=== PATIENT | male | born 1945 | race Caucasian/White ===

== ENCOUNTER → 2022-03-10 | Outpatient (CLI) | payer MEDICARE, OTHER ==
--- NOTE | 2022-03-10 12:16 | US ---
EXAMINATION TYPE: US kidneys/renal and bladder DATE OF EXAM: 03/10/2022 COMPARISON: NONE CLINICAL HISTORY: 76-year-old male R31.9 HEMATURIA. Macroscopic hematuria. No symptoms. Technique: Multiple sonographic images of the kidneys and bladder are obtained. FINDINGS: EXAM MEASUREMENTS: Right Kidney: 9.6 x 4.7 x 5.0 cm Left Kidney: 9.5 x 4.1 x 5.6 cm Right Kidney: No hydronephrosis or masses seen Left Kidney: No hydronephrosis or masses seen, unable to visualize spleen due to bowel gas. Bladder: Distended, anechoic Bilateral Jets seen Lobulated, enlarged appearance to the prostate gland impressing onto the base of the bladder IMPRESSION: Lobulated prostate impressing into the base of the bladder, possibly related to BPH. Correlate with P SA and patient's symptoms. No hydronephrosis seen.
== END | disposition home or self-care (01) ==
LOC: RADUSWWP 10:03
PROVIDERS: ATTEND Internal Medicine Geriatric Medicine
DX: R31.9 Hematuria, unspecified (principal)
CPT/HCPCS: 76770

== ENCOUNTER → 2022-04-10 | Outpatient (CLI) | payer MEDICARE, OTHER ==
[2022-04-10 14:32] LABS: African American GFR (CKD) >90 (>60 ml/min/1.73 sqM); Blood Urea Nitrogen 11 mg/dL (9-20); Non-African American GFR(CKD) 81 (>60 ml/min/1.73 sqM)
--- NOTE | 2022-04-10 16:23 | CT ---
EXAMINATION TYPE: CT urogram wo/w con CT DLP: 2460 mGycm, Automated exposure control for dose reduction was used. DATE OF EXAM: 04/10/2022 3:42 PM COMPARISON: Ultrasound kidneys 03/10/2022. CLINICAL INDICATION:Male, 76 years old with history of R31.0 GROSS HEMATURIA, HEMATURIA X1 MONTH TECHNIQUE: Urogram with imaging of the abdomen and pelvis. Coronal and sagittal reformats were performed. 2D and 3D reconstructions are performed to assist visualization of the urinary tract on a separate workstat ion. Contrast used:100 mL of Isovue 300 without and with IV Contrast, Oral contrast used: None. FINDINGS: GENITOURINARY: RIGHT KIDNEY AND URETER: No calculi. No hydronephrosis or hydroureter. No renal mass or other lesions . No urothelial lesions: no filling defect, dilation, stricture or wall thickening. Calcifications wi thin the renal sinus are felt to be secondary to vascular atherosclerosis. LEFT KIDNEY AND URETER: Nonobstructing renal calculi measuring 2 mm.. No hydronephrosis or hydrourete r. No renal mass or other lesions. No urothelial lesions: no filling defect, dilation, stricture or w all thickening. Additional calcifications within the renal sinus are felt to be secondary to vascular atherosclerosis . URINARY BLADDER: Not optimally distended. Limited evaluation of the urinary bladder secondary to stre ak artifact and lack of IV contrast. Posterior craft well opacified on 10 minute delay and demonstrat es no definitive mass. Median lobe hypertrophy changes extend into the bladder lumen. REPRODUCTIVE: Prostate gland is enlarged measuring up to 5.6 cm. ABDOMEN LIVER: Diffusely hypoattenuating, consistent with hepatic steatosis. Hepatic cyst present. GALLBLADDER AND BILE DUCTS: Unremarkable PANCREAS: Unremarkable. SPLEEN: Unremarkable. ADRENAL GLANDS: Unremarkable. STOMACH AND BOWEL: . No evidence of bowel obstruction. PERITONEUM: No evidence of pneumoperitoneum, free fluid, or adenopathy. VASCULATURE: No aortic aneurysm. Infrarenal fusiform aneurysmal dilation up to 3.4 cm. MUSCULOSKELETAL: No acute osseous abnormalities. Bilateral hip prostheses which appears intact. Multi level disc degeneration changes are seen throughout the spine with dextroscoliosis apex L2. SOFT TISSUE/ABDOMINAL WALL: Unremarkable. LOWER CHEST: No significant findings. IMPRESSION: 1. No evidence of urolithiasis or renal/urothelial neoplasm. There was limited evaluation of the uri nary bladder anterior wall. 2. Left nonobstructing renal calculi. 3. Prostatomegaly. correlate serum PSA. 4. Fusiform infra renal aortic aneurysm measuring up to 3.4 cm. 5. Colonic diverticulosis. 6. Hepatic steatosis.
== END | disposition home or self-care (01) ==
LOC: RADCTMAIN 13:44
PROVIDERS: ATTEND Urology
DX: R31.0 Gross hematuria (principal)
CPT/HCPCS: 82565; 84520; 74178; 36415; 74400; Q9967

== ENCOUNTER → 2023-02-11 | Outpatient (CLI) | payer MEDICARE, OTHER ==
--- NOTE | 2023-02-11 12:17 | XR ---
EXAM TYPE: LUMBAR SPINE X RAY SERIES COMPARISON: NONE HISTORY: Pain TECHNIQUE: 4 views are submitted. FINDINGS: Alignment is anatomic. The pedicles are intact. The transverse processes are intact. There is yesenia re scoliosis with severe degenerative disc disease and facet arthropathy at all levels. Postsurgical change involving the sacrum and bilateral hip are noted. Vascular calcifications of the aorta. Findin gs suspicious for a abdominal aortic aneurysm measuring 4.3 cm. IMPRESSION: 1. Severe scoliosis with severe degenerative disc disease at all levels. Severe facet arthropathy wit h multilevel bilateral foraminal encroachment. 2. A 4.3 cm abdominal aortic aneurysm appears increased in size from CT scan of 04/10/2022 where it miguelina sured 3.4 cm. A Yellow level critical message alert has been initiated for Mt Molina MD via the [employer] Critical Results System on 02/11/2023 12:15 PM. This message alert has been sent to Mt Molina MD via the preferences provided by the clinician for the receipt of Radiology Critical Findings. Message ID [id number].
== END | disposition home or self-care (01) ==
LOC: RADXRMAIN 11:35
PROVIDERS: ATTEND Internal Medicine Geriatric Medicine
DX: M51.36 Other intervertebral disc degeneration, lumbar region (principal); M47.816 Spondylosis without myelopathy or radiculopathy, lumbar region; I71.40 Abdominal aortic aneurysm, without rupture, unspecified
CPT/HCPCS: 72100

== ENCOUNTER → 2023-02-16 | Outpatient (CLI) | payer MEDICARE, OTHER ==
--- NOTE | 2023-02-16 09:26 | US ---
EXAMINATION TYPE: US duplex aorta DATE OF EXAM: 02/16/2023 COMPARISON: CT urogram 2021 CLINICAL INDICATION: Male, 77 years old with history of I71.40 ABDOMINAL AORTIC ANEURYSM, WITHOUT RUP TURE; AAA seen on previous CT and x-ray TECHNIQUE: Multiple sonographic images of the abdominal aorta are obtained. FINDINGS: EXAM MEASUREMENTS: Abdominal Aorta: Proximal: 2.7 x 2.2cm Mid: 2.5 x 2.8cm Distal: 3.5 x 4.0cm Rt. Iliac: 1.2 x 1.2cm Lt. Iliac: 1.2 x 1.2cm AAA seen distal aorta measuring 3.5 x 4.0cm with a length of 5.0cm, proximal and mid aorta ectatic . Atherosclerotic calcification of the aorta. Normal color Doppler flow within the aorta. IMPRESSION: Infrarenal fusiform distal abdominal aortic aneurysm measuring up to 4.0 cm. Ectasia of the proximal and mid portions of the abdominal aorta.
== END | disposition home or self-care (01) ==
LOC: RADUSWWP 08:42
PROVIDERS: ATTEND Internal Medicine Geriatric Medicine
DX: I71.40 Abdominal aortic aneurysm, without rupture, unspecified (principal)
CPT/HCPCS: 93979

== ENCOUNTER → 2023-03-01 | Outpatient (CLI) | payer MEDICARE, OTHER ==
--- NOTE | 2023-03-01 10:36 | MR ---
EXAMINATION TYPE: MR lumbar spine wo/w con DATE OF EXAM: 03/01/2023 10:12 AM COMPARISON: 02/11/2023. CLINICAL INDICATION: Male, 77 years old with history of M54.50 low back pain; Low back pain. TECHNIQUE: Multi planar, multi sequence imaging was performed utilizing: T1-weighted, T2-weighted, a nd turbo inversion recovery imaging of the lumbar spine. IV Contrast: 7 cc Gadavist. None. FINDINGS: Alignment: There is scoliosis changes to the spine dextroscoliosis apex T12-L1. Cord: The conus medullaris and the distal spinal cord appear unremarkable with regards to their signa l intensity and morphology. No abnormal postcontrast enhancement. Bones/Discs: There is reactive inversion recovery edema involving the L2-L3 adjoining endplates. Ther e is reactive contrast enhancement in this seen region as well. Multilevel degeneration with osteophy keshia and disc space narrowing and Schmorl's nodes are present throughout the spine and some of these a re secondary to scoliosis changes. These changes are likely due to some scoliosis changes. T12-L1: Disc bulge and facet joint arthropathy result in mild spinal canal and severe left and modera te to severe right neural foraminal stenosis. L1-L2: Disc bulge and facet joint arthropathy result in mild spinal canal and severe left and moderat e to severe right neural foraminal stenosis. L2-L3: Disc bulge with superimposed protrusion centrally with moderate spinal canal stenosis, moderat e to severe right and severe left neural foraminal stenosis. L3-L4: Disc bulge and facet joint arthropathy result in moderate spinal canal and severe right and mo derate to severe left neural foraminal stenosis. L4-L5: Disc bulge and facet joint arthropathy result in mild spinal canal and moderate bilateral neur al foraminal stenosis. L5-S1: The disc is rounded posterior morphology without significant spinal canal stenosis. Facet join t arthropathy with moderate to severe right and severe left neural foraminal stenosis. No significant spinal canal or neural foraminal stenosis in the remainder of the visualized levels. Other findings: None. IMPRESSION: 1. L2-L3 disc herniation with moderate spinal canal stenosis and moderate to severe right and severe left neural foraminal stenosis. 2. Multilevel disc degeneration with associated osteoarthritic changes. Neural foraminal stenosis wo rse at L5-S1, L3-L4 and L1-L2. 3. Findings compatible some active inflammation involving the L2 and L3 vertebral bodies.
== END | disposition home or self-care (01) ==
LOC: RADMRIMAIN 09:19
PROVIDERS: ATTEND Internal Medicine Geriatric Medicine
DX: M51.36 Other intervertebral disc degeneration, lumbar region (principal); M51.26 Other intervertebral disc displacement, lumbar region; M48.061 Spinal stenosis, lumbar region without neurogenic claudication
CPT/HCPCS: 72158; A9585

== ENCOUNTER → 2023-03-04 | Outpatient (CLI) | payer MEDICARE, OTHER ==
[2023-03-04 11:42] VITALS: BP 142/78; PULSE 51; RESP 18; TEMP 97.7
--- NOTE | 2023-03-04 15:26 | P.PAINPG ---
PQRS Measure Charge Sheet Comment: HISTORY OF PRESENT ILLNESS: 77 yr old male w at side as a referral from Dr Owens presents today w severe and chronic LBP x 3 yrs secondary to disc bulges, DDD, spondylolisthesis and facet arthropathy without myelopathy for evaluation. Pt states pain level is provoked at 6 /10 in intensity, constant, localized in the lower lumbar spine, sharp in character w shooting pain. Pain is provoked by bending. Pain is alleviated by injections by Dr Mahan, medications ([place], Tyl #3, Aleve, Tyl), topicals, THC products, ice, heat, PT x 16 wks in 2016, repositioning and rest. Pt follows a physician guided home exercise & streching regimen daily x last 2 yrs. Oswetry Pain Score of 30. PMH: OA, HTN, Hyperlipidemia, MDD, Graves Hypothroidism, Parkinson's Disease, Seasonal Allergies PSH: BL Hip Replacement, L SI Fusion, Colonoscopy (2011, 2017), L Shoulder Surgery (2021), L Knee Surgery (2007), Cataract Resection (2009), BL Hip Replacement (2001), Hernia Repair (2002) SH: Daily ETOH use, Daily tobacco use, CBD, THC & Kratom use FH: Non contributory All: See list Meds: See list REVIEW OF ORGAN SYSTEMS: CONSTITUTIONAL: No fevers or chills. No recent weight loss. NEUROLOGICAL: + numbness and tingling along the distal extremities. No seizure disorders or headaches. MUSCULOSKELETAL: + pain PSYCHIATRIC: Denies current depression or suicidal thoughts. Physical Examinations : Constitutional : Cooperative , not in acute distress . Neurologic : Cranial nerve II to XII intact. No focal neurological deficits. Psychiatric : alert & oriented x 3. Matching mood & appropriate affect. Judgment & insight intact. Musculoskeletal : Cervical Spine Motor strength in the deltoid and biceps: Normal right side. Normal Left side Motor strength biceps and the wrist extensors: Normal right side . Normal left side Motor strength in the triceps muscle: Normal right side. Normal left side Deep tendon reflexes: Normal at the biceps. Normal at Brachioradialis. Normal at triceps Vertebral body tenderness to deep palpation over Cervical facet loading test: positive bilaterally Spurling test: positive bilaterally Neck distraction test: positive bilaterally Anne sign: positive bilaterally Lumbar spine Motor strength lower extremities ,thigh and legs 5/5 Right side , 5/5 Left side Deep tendon reflexes : Normal Knee Jerk. Normal Ankle Jerk Vertebral body tenderness over L5 Lan Test positive Lumbar facet Loading Test: positive Right / positive Left Range of motion of the lumbar spine Flexion 30 degrees, extension 10 degrees Straight Leg Raise test: Left/ Right positive at 35 degrees Ernestine test: positive right / positive left. Severe tenderness over the Sacroiliac joint on the Right / Left sides Gaenslen test: positive bilaterally Seated flexion test: positive bilaterally. Sacral spine : Severe tenderness over the Sacroiliac joint: right side / left side Range of motion: Flexion of the lumbar spine <60 degrees Range of motion: Extension of the lumbar spine <20 degrees Gaenslen's Test positive David's Test positive Ernestine test: positive right side / left side Thigh Thrust Test Sacral Thrust Test Imaging: MRI non contrast of the lumbar spine from Dec 2018 reviewed Assessment/ Plan : Lumbar DDD Recommendation of LOUIS L5-S1. May need a series of injections for optimal pain relief. Risks, benefits of procedure discussed and pt verbalized understanding. Protocol for discontinuation/ continuation of medications kaylie procedure discussed. All questions answered. I have spent greater than 30 minutes on patient care today. Dr Mauricio was available by phone for the evaluation of this patient. The time was used to review the medical records including relevant urine studies and Prescription history (MAPs), review of the available imaging, evaluation and examination of the patient, coordination of care with the medical staff and if applicable referring physicians, as well as creation of the medical record Home Medications: Ambulatory Orders Acetaminophen-Codeine 300-30mg [Tylenol w/codeine #3] 1 tab PO Q6H PRN 03/04/23 Baclofen 10 mg PO TID 03/04/23 HYDROcodone/APAP 10-325MG [[place] 10-325] 1 tab PO Q6HR PRN 03/04/23 Levothyroxine Sodium [Levoxyl] 150 mcg PO DAILY 03/04/23 Omeprazole [PriLOSEC] 20 mg PO AC-BRKFST 03/04/23 Pramipexole [Mirapex] 0.5 mg PO HS 03/04/23 Rosuvastatin [Crestor] tablet PO HS 03/04/23 buPROPion XL [Wellbutrin XL] 150 mg PO DAILY 03/04/23 dexAMETHasone [Decadron] tablet PO DAILY 03/04/23 traZODone HCL [Desyrel] 50 mg PO HS 03/04/23 Controlled Substance Measures - Controlled Substance Measures Is patient prescribed a controlled substance at discharge?: No
== END ==
LOC: PNWHC3 10:19
PROVIDERS: ATTEND Specialist
DX: M51.36 Other intervertebral disc degeneration, lumbar region (principal); M43.16 Spondylolisthesis, lumbar region; G89.29 Other chronic pain; M19.90 Unspecified osteoarthritis, unspecified site; I10 Essential (primary) hypertension; E78.5 Hyperlipidemia, unspecified; F32.9 Major depressive disorder, single episode, unspecified; E03.9 Hypothyroidism, unspecified; G20 Parkinson's disease; J30.2 Other seasonal allergic rhinitis; Z79.890 Hormone replacement therapy
CPT/HCPCS: 99202

== ENCOUNTER → 2023-04-15 | Outpatient (CLI) | payer MEDICARE, OTHER ==
[2023-04-15 10:58] VITALS: BP 153/87; PULSE 54; RESP 15; TEMP 98.1
--- NOTE | 2023-04-15 14:32 | P.PAINPG ---
PQRS Measure Charge Sheet Comment: HISTORY OF PRESENT ILLNESS: 77 yr old male w at side presents today w severe and chronic LBP x 3 yrs secondary to disc bulges, DDD, spondylolisthesis and facet arthropathy without myelopathy for evaluation s/p LOUIS L5-S1. Pt states he experienced 80 % pain relief x 1 wks s/p procedure. Pt states pain level is provoked at 6 /10 in intensity, constant, localized in the lower lumbar spine, sharp in character w shooting pain. Pain is provoked by standing/ walking for periods of 15 min or more. Pain is alleviated by injections by Dr Mahan, medications, topicals, THC products, ice, heat, PT x 16 wks in 2016, repositioning and rest. Pt follows a physician guided home exercise & stretching regimen daily x last 2 yrs. Oswestry Pain Score of 25. Interventional procedures include LOUIS L5-S1 x1 Medications include [place], Tyl #3, Aleve, Tyl, topicals, THC products REVIEW OF ORGAN SYSTEMS: CONSTITUTIONAL: No fevers or chills. No recent weight loss. NEUROLOGICAL: + numbness and tingling along the distal extremities. No seizure disorders or headaches. MUSCULOSKELETAL: + pain PSYCHIATRIC: Denies current depression or suicidal thoughts. Physical Examinations : Constitutional : Cooperative , not in acute distress . Neurologic : Cranial nerve II to XII intact. No focal neurological deficits. Psychiatric : alert & oriented x 3. Matching mood & appropriate affect. Judgment & insight intact. Musculoskeletal : Cervical Spine Motor strength in the deltoid and biceps: Normal right side. Normal Left side Motor strength biceps and the wrist extensors: Normal right side . Normal left side Motor strength in the triceps muscle: Normal right side. Normal left side Deep tendon reflexes: Normal at the biceps. Normal at Brachioradialis. Normal at triceps Vertebral body tenderness to deep palpation over Cervical facet loading test: positive bilaterally Spurling test: positive bilaterally Neck distraction test: positive bilaterally Anne sign: positive bilaterally Lumbar spine Motor strength lower extremities ,thigh and legs 5/5 Right side , 5/5 Left side Deep tendon reflexes : Normal Knee Jerk. Normal Ankle Jerk Vertebral body tenderness over L5 Lan Test positive Lumbar facet Loading Test: positive Right / positive Left over BL L4-L5, L5-S1 Range of motion of the lumbar spine Flexion 30 degrees, extension 10 degrees Straight Leg Raise test: Left/ Right positive at 35 degrees Ernestine test: positive right / positive left. Severe tenderness over the Sacroiliac joint on the Right / Left sides Gaenslen test: positive bilaterally Seated flexion test: positive bilaterally. Sacral spine : Severe tenderness over the Sacroiliac joint: right side / left side Range of motion: Flexion of the lumbar spine <60 degrees Range of motion: Extension of the lumbar spine <20 degrees Gaenslen's Test positive David's Test positive Ernestine test: positive right side / left side Thigh Thrust Test Sacral Thrust Test Imaging: MRI non contrast of the lumbar spine from 03/01/23 reviewed Assessment/ Plan : Lumbar DDD Recommendation of BL facet block of the medial branches L4-L5, L5-S1. May need a series of injections, up until RFA, for optimal pain relief. Risks, benefits of procedure discussed and pt verbalized understanding. Protocol for discontinuation/ continuation of medications kaylie procedure discussed. PT x 6 wks re: M51.36 All questions answered. I have spent greater than 30 minutes on patient care today. Dr Mauricio was available by phone for the evaluation of this patient. The time was used to review the medical records including relevant urine studies and Prescription history (MAPs), review of the available imaging, evaluation and examination of the patient, coordination of care with the medical staff and if applicable referring physicians, as well as creation of the medical record PQRS Narrative: Hx Alcohol Use (MH) Yes: 6 beers daily Home Medications: Ambulatory Orders Acetaminophen-Codeine 300-30mg [Tylenol w/codeine #3] 1 tab PO Q6H PRN 03/04/23 Levothyroxine Sodium [Levoxyl] 150 mcg PO DAILY 03/04/23 Omeprazole [PriLOSEC] 20 mg PO AC-BRKFST 03/04/23 Pramipexole [Mirapex] 0.5 mg PO HS 03/04/23 Fluticasone Nasal Henderson [Flonase Nasal Henderson] 1 spray EA NOSTRIL DAILY 03/18/23 Loratadine [Claritin] 10 mg PO DAILY 03/18/23 Multivitamins, Thera [Multivitamin (formulary)] 1 tab PO DAILY 03/18/23 Rosuvastatin Calcium 5 mg PO DAILY 03/18/23 Vit C/E/Zn/Coppr/Lutein/Zeaxan [Preservision Areds 2 Softgel] 1 each PO BID 03/18/23 Controlled Substance Measures - Controlled Substance Measures Is patient prescribed a controlled substance at discharge?: No
== END ==
LOC: PNWHC3 10:23
PROVIDERS: ATTEND Specialist
DX: M51.37 Other intervertebral disc degeneration, lumbosacral region (principal)
CPT/HCPCS: 99211

== ENCOUNTER 2023-07-08 09:53 | Day surgery (SDC) | payer MEDICARE, OTHER ==
[~2023-07-08 09:53] MED LIST: LACTATED RINGERS 1,000 ML IV SCH
[2023-07-08 10:19] VITALS: TEMP 98
[2023-07-08] MEDS ORDERED: MIDAZOLAM 2 MG/2 ML VIAL ONE (10:49)
[2023-07-08] MEDS ORDERED: methylPREDNISolone ACETATE 40 MG/ML 1 ML VIAL ONE (10:49)
[2023-07-08] MEDS ORDERED: ROPIVACAINE 5MG/ML 20ML VIAL ONE (10:49)
[2023-07-08] MEDS ORDERED: fentaNYL (PF) 50 MCG/ML 2 ML AMP ONE (10:49)
--- NOTE | 2023-07-08 11:03 | P.PCN ---
Date of Procedure: 07/08/23 Procedure(s) Performed: PREOPERATIVE DIAGNOSIS : 1- Lumbar spondylosis with Facet Arthropathy without myelopathy . 2- Lumber degenerative disc disease POSTOPERATIVE DIAGNOSIS: 1- Lumbar spondylosis with Facet Arthropathy without myelopathy . 2- Lumber degenerative disc disease PROCEDURE: Diagnostic bilateral L3 , L4 , and L5 medial branch block under fluoroscopy guidance(fluoroscopy images available in the radiology Department ) ( To target the facet joint between Bilateral L4-5 , and L5-S1 )# 1st ANESTHESIA:,moderate sedation with intravenous Versed 2 mg and Fentanyl 50 mcg. (Sedation was started at 10:49 ,ended at 11:01 ) EBL: Minimal COMPLICATION: None PROCEDURE INDICATION: Chronic low back pain secondary to Facet arthropathy unresponsive to conservative treatment. PROCEDURE DESCRIPTION: the patient was seen and identified in the preop holding area , risks and benefits and possible complications of the procedure and alternative were discussed with the patient, and the patient agreed to proceed with the procedure and signed the consent and vital signs monitored during the procedure and fluoroscopy was used to maximize the benefit and accuracy of the needle placement, and sedation was given to decrease patient anxiety, patient was taken to the procedure room and placed in prone position vital signs monitored in the back prepped with chlorhexidine X3 then under strict sterile technique using a right oblique fluoroscopy ,the junction of the transverse process and the superior articulating process of the right L3 , L4 , and L5 vertebra which corresponding to the fluoroscopy image of the eye of the Mitch dog on the block side for the medial branches and subsequently , after local infiltration of skin and subcu tissuies with Ropivacaine 0.5 % , one mL at each level ,then 22-gauge Quincke-type needles , 3 needle was used , each one of them placed at the junction of the base of the transverse process and the superior articular process at the appropriate level, and the needle was advanced until the periosteum contacted, needle placement confirmed with AP oblique and lateral view and after appropriate needle placement confirmed, and after negative aspiration for heme and CSF and there was no paresthesia 1-1/2 mL of Ropivacaine 0.5% mixed with 20 mg Depo-Medrol , then half mL injected at each level after negative aspiration the needle subsequently removed and the same procedure repeated for the left side at left side at L3 , L4 and L5 levels. At the end of the procedure and the needles removed and a bandage applied after the skin was cleaned the cleaning solution patient taken to recovery room in stable condition and monitors in the recovery room for 20-30 minutes and discharged home in stable condition after discharge criteria met and patient will follow up with the pain clinic in 2-4 weeks
[2023-07-08] MEDS ORDERED: IV FLUID CONTINUATION 1,000 ML IV ONE (11:06)
[2023-07-08 11:27] VITALS: BP 150/87; PULSE 57; RESP 16
--- NOTE | 2023-07-08 12:14 | FL ---
EXAMINATION TYPE: FL guided pain mgmt statistic DATE OF EXAM: 07/08/2023 HISTORY: Fluoroscopy time Total dose area product (DAP) in uGy*m?, mGy*cm? (or similar): 0.75138 IMPRESSION: 1. Fluoroscopy time.
== END 2023-07-08 11:41 | disposition home or self-care (01) ==
LOC: ORPAIN 09:53
PROVIDERS: ATTEND Specialist
DX: M51.36 Other intervertebral disc degeneration, lumbar region (principal); M47.816 Spondylosis without myelopathy or radiculopathy, lumbar region
CPT/HCPCS: 64493; 64494 ×2; 99152; J2250; J1030; J3010; J2795

== ENCOUNTER → 2023-07-21 | Outpatient (CLI) | payer MEDICARE, OTHER ==
[2023-07-21 11:29] VITALS: BP 137/58; PULSE 56; RESP 16; TEMP 98
--- NOTE | 2023-07-21 14:45 | P.PAINPG ---
PQRS Measure Charge Sheet Comment: HISTORY OF PRESENT ILLNESS: A 77 yr old male w at side presents today w severe and chronic LBP x 3 yrs secondary to disc bulges, DDD, spondylolisthesis and facet arthropathy without myelopathy for evaluation s/p BL MBB L4-L5, L5-S1 #1. Pt states he experienced 85% pain relief x 1 wk s/p procedure. Pt states pain level is provoked at 6 /10 in intensity, intermittent, predominantly axial, localized in the lower lumbar spine, sharp in character w shooting pain. Pain is provoked by laying supine for periods of 30 min or more. Pain is alleviated by injections by Dr Mahan, medications, topicals, THC products, ice, heat, PT x 16 wks in 2016, repositioning and rest. Pt follows a physician guided home exercise & stretching regimen daily x last 2 yrs. Oswestry Axial Pain Score of 25. Interventional procedures include LOUIS L5-S1 x1, BL MBB L3-L5 x1 Medications include [place], Tyl #3, Aleve, Tyl, topicals, THC products REVIEW OF ORGAN SYSTEMS: CONSTITUTIONAL: No fevers or chills. No recent weight loss. NEUROLOGICAL: + numbness and tingling along the distal extremities. No seizure disorders or headaches. MUSCULOSKELETAL: + pain PSYCHIATRIC: Denies current depression or suicidal thoughts. Physical Examinations : Constitutional : Cooperative , not in acute distress . Neurologic : Cranial nerve II to XII intact. No focal neurological deficits. Psychiatric : alert & oriented x 3. Matching mood & appropriate affect. Judgment & insight intact. Musculoskeletal : Cervical Spine Motor strength in the deltoid and b iceps: Normal right side. Normal Left side Motor strength biceps and the wrist extensors: Normal right side . Normal left side Motor strength in the triceps muscle: Normal right side. Normal left side Deep tendon reflexes: Normal at the biceps. Normal at Brachioradialis. Normal at triceps Vertebral body tenderness to deep palpation over Cervical facet loading test: positive bilaterally Spurling test: positive bilaterally Neck distraction test: positive bilaterally Anne sign: positive bilaterally Lumbar spine Motor strength lower extremities ,thigh and legs 5/5 Right side , 5/5 Left side Deep tendon reflexes : Normal Knee Jerk. Normal Ankle Jerk Vertebral body tenderness over L5 Lan Test positive Lumbar facet Loading Test: positive Right / positive Left over BL L4-L5, L5-S1 Range of motion of the lumbar spine Flexion 30 degrees, extension 10 degrees Straight Leg Raise test: Left/ Right positive at 35 degrees Ernestine test: positive right / positive left. Severe tenderness over the Sacroiliac j oint on the Right / Left sides Gaenslen test: positive bilaterally Seated flexion test: positive bilaterally. Sacral spine : Severe tenderness over the Sacroiliac joint: right side / left side Range of motion: Flexion of the lumbar spine <60 degrees Range of motion: Extension of the lumbar spine <20 degrees Gaenslen's Test positive David's Test positive Ernestine test: positive right side / left side Thigh Thrust Test Sacral Thrust Test Imaging: MRI non contrast of the lumbar spine from 03/01/23 reviewed Assessment/ Plan : Lumbar DDD Recommendation of BL facet block of the medial branches L4-L5, L5-S1 #2. May need a series of injections, up until RFA, for optimal pain relief. Risks, benefits of procedure discussed and pt verbalized understanding. Protocol for discontinuation/ continuation of medications kaylie procedure discussed. PT x 6 wks re: M51.36 All questions answered. I have spent greater than 30 minutes on patient care today. Dr Mauricio was available by phone for the evaluation of this patient. The time was used to review the medical records including relevant urine studies and Prescription history (MAPs), review of the available imaging, evaluation and examination of the patient, coordination of care with the medical staff and if applicable referring physicians, as well as creation of the medical record PQRS Narrative: Hx Alcohol Use (MH) Yes: 6 beers daily Home Medications: Ambulatory Orders Acetaminophen-Codeine 300-30mg [Tylenol w/codeine #3] 1 tab PO Q6H PRN 03/04/23 Levothyroxine Sodium [Levoxyl] 150 mcg PO DAILY 03/04/23 Omeprazole [PriLOSEC] 20 mg PO AC-BRKFST 03/04/23 Pramipexole [Mirapex] 0.5 mg PO HS 03/04/23 Fluticasone Nasal Libby [Flonase Nasal Libby] 1 spray EA NOSTRIL DAILY 03/18/23 Loratadine [Claritin] 10 mg PO DAILY 03/18/23 Multivitamins, Thera [Multivitamin (formulary)] 1 tab PO DAILY 03/18/23 Rosuvastatin Calcium 5 mg PO DAILY 03/18/23 Vit C/E/Zn/Coppr/Lutein/Zeaxan [Preservision Areds 2 Softgel] 1 each PO BID 03/18/23 Controlled Substance Measures - Controlled Substance Measures Is patient prescribed a controlled substance at discharge?: No
== END ==
LOC: PNWHC3 10:47
PROVIDERS: ATTEND Specialist
DX: M51.37 Other intervertebral disc degeneration, lumbosacral region (principal)
CPT/HCPCS: 99211